=== PATIENT | male | born 1940 | race Caucasian/White ===

== ENCOUNTER → 2017-03-14 | Outpatient (CLI) | payer MEDICARE, BC ==
[2014-09-30 19:58] VITALS: BP 145/78
[~2017-03-14] MED LIST: ALBU8.5H8 INH; AZIT250T PO; BUPIVACAINE MPF 0.25% 10 ML VIAL. ONE; CEPH500C PO; CITA40TA5 PO; DEXAMETHASONE SOD PHOS 4 MG/ML VIAL ONE; EZET1TAB35 PO; FLUT1DIS3 IH; FLUT1DIS5 IH; GENT5DRO3 OP; HYDR-2758 PO; LIDOCAINE 1% PF 30 ML VIAL. ONE; METO-239 PO; OXYC-323 PO; TIOT18CA IH
== END | disposition home or self-care (01) ==
LOC: SURG 12:51
PROVIDERS: ATTEND Anesthesiology Pain Medicine
DX: M17.11 Unilateral primary osteoarthritis, right knee (principal); J44.9 Chronic obstructive pulmonary disease, unspecified; I48.91 Unspecified atrial fibrillation; I25.10 Atherosclerotic heart disease of native coronary artery without angina pectoris; M19.91 Primary osteoarthritis, unspecified site; Z72.0 Tobacco use
CPT/HCPCS: 20610; 77002; J1100; J2001; J3490

== ENCOUNTER 2017-03-21 11:52 | Emergency (ER) | payer MEDICARE ==
[~2017-03-21 11:52] MED LIST changes: -AZIT250T PO; -BUPIVACAINE MPF 0.25% 10 ML VIAL. ONE; -DEXAMETHASONE SOD PHOS 4 MG/ML VIAL ONE; -LIDOCAINE 1% PF 30 ML VIAL. ONE
[2017-03-21 11:55] VITALS: BP 102/67
--- NOTE | 2017-03-21 12:43 | RAD ---
Portable chest, 03/21/2017: History: Shortness of breath, COPD There has been a previous median sternotomy. A left-sided transvenous venous pacing device is in place with a single lead extending of the right ventricle. The heart size is normal. There is calcific plaquing and tortuosity of the thoracic aorta. The pulmonary vascularity is normal. No pulmonary infiltrates are seen. There is minimal basilar scarring. No pleural fluid is evident. A right shoulder prosthesis is in place. IMPRESSION: No acute cardiopulmonary abnormality is detected.
--- NOTE | 2017-03-21 12:48 | PHYS DOC ---
General Chief Complaint: cough Stated Complaint: FEVER,COUGH Time Seen by MD: 12:01 Source: patient, family Exam Limitations: no limitations Problems: History of Present Illness Initial Comments Patient is a 76-year-old male brought to the ED by family with possible bronchitis. Patient was getting injections for pain control at the pain clinic for his right knee today and decided to come for evaluation. Patient states he's been complaining of worsening nonproductive cough and chills for several days. Family persuaded him to check in for evaluation. Patient has chronic respiratory failure uses 4 L of oxygen via nasal cannula at all times. He denies any new shortness of breath chest pain, palpitations, edema, diaphoresis , nausea, vomiting, or measured fevers. Describes his symptoms as minimal, states he gets a cold around this time each year "right before Thanksgi." ED vital signs are stable on his home O2 Timing/Duration: other (past few days) Severity: mild Modifying Factors: improves with other Associated Symptoms: cough Allergies: Coded Allergies: Sulfa (Sulfonamide Antibiotics) (Unverified Allergy, Severe, 09/30/14) Past Medical History Medical History: other (COPD, coronary artery disease, AAA "inoperable", sudden cardiac in 1998, prostate cancer, chronic right knee pain, chronic respiratory failure uses 4 L of O2 nasal cannula at all times) Surgical History: other (CABG times , right shoulder) Social History Smoker: quit greater than 1 year (1998) Alcohol: none Drugs: none Review of Systems Constitutional: chills, denies diaphoresis, denies fever, denies malaise Respiratory: cough, denies shortness of breath, denies wheezing Cardiovascular: denies chest pain, denies edema, denies palpitations, denies syncope Gastrointestinal: denies abdominal pain, denies diarrhea, denies nausea, denies vomiting Genitourinary: denies dysuria, denies frequency, denies hematuria Musculoskeletal: see HPI, denies back pain, denies neck pain Psychiatric/Neurological: denies headache, denies numbness, denies paresthesia , denies weakness Hematologic/Lymphatic: denies blood clots, denies easy bleeding, denies easy bruising Physical Exam General Appearance: no apparent distress, thin Eyes: bilateral eye normal inspection, bilateral eye PERRL, bilateral eye EOMI Ear, Nose, Throat: hearing grossly normal, normal ENT inspection (wearing nasal cannula), normal pharynx Neck: non-tender, supple Respiratory: chest non-tender (scar consistent with remote CABG), no respiratory distress, decreased breath sounds, wheezing Cardiovascular: normal peripheral pulses, regular rate, rhythm, no edema Gastrointestinal: non tender, soft Back: no CVA tenderness, no vertebral tenderness Extremities: normal range of motion, normal inspection (right knee with sterile dressings status post intra-articular injections, mild clubbing of the nails), no calf tenderness Neurologic/Psychiatric: lace winder II-XII nml as tested, no motor/sensory deficits, alert, normal mood/affect, oriented x 3 Skin: normal color, warm/dry Orders, Labs, Meds EKG: Normal sinus rhythm 76 bpm, multiple PVCs no STEMI changes. Baseline wander artifact noted interpreted by Dr. Moore. PATIENT: CARLOS VILLAFUERTE ACCOUNT: [id number] : 1940 LOCATION: ER AGE: 76 SEX: M EXAM STATUS: REG ER ORD. PHYSICIAN: ALFRED MOORE DO REASON: sob, h/o COPD PROCEDURE: CHEST AP ONLY Portable chest, 03/21/2017: History: Shortness of breath, COPD There has been a previous median sternotomy. A left-sided transvenous venous pacing device is in place with a single lead extending of the right ventricle. The heart size is normal. There is calcific plaquing and tortuosity of the thoracic aorta. The pulmonary vascularity is normal. No pulmonary infiltrates are seen. There is minimal basilar scarring. No pleural fluid is evident. A right shoulder prosthesis is in place. IMPRESSION: No acute cardiopulmonary abnormality is detected. DICTATED AND SIGNED BY: JOMAR CRAMER MD DATE: 03/21/17 1240 CC: ALFRED MOORE DO; MIGDALIA HAMILTON ~ No new or progressive symptoms. I discussed empiric antimicrobial therapy to prevent pneumonia. I discussed signs and symptoms to monitor as well as indications for urgent return to the department. The patient's questions were answered to his satisfaction and he expressed agreement and understanding with the treatment plan. Departure Time of Disposition: 12:57 Disposition: 01 HOME, SELF-CARE Diagnosis: bronchitis, COPD with chronic respiratory failure Condition: STABLE Patient Instructions: Acute Bronchitis, [id number] Additional Instructions: Continue current medications. Activity as tolerated. Prescription: Zithromax take with food as directed. Follow-up with your doctor in 5-7 days for recheck. Return to ED with new or changing symptoms. ALFRED MOORE DO Mar 21, 2017 12:48
[2017-03-21] MEDS ORDERED: AZIT250T PO (12:55)
--- NOTE | 2017-03-21 14:01 | EKG ---
[address] [address] Test Date: 2017-03-21 Test Time: 12:18:01 Pat Name: CARLOS VILLAFUERTE Department: Room: Gender: M Partner Marketing Manager: SYLVIA : 1940 Requested By: ALFRED MOORE Order Number: [id number] Reading MD: Biju Ha MD Measurements Intervals Streeter Rate: 76 P: RI: QRS: 134 QRSD: 102 T: 102 QT: 412 QTc: 468 Interpretive Statements SR PVC'S POSSIBLE LIMB LEAD MISPLACEMENT NON-SPECIFIC ST/T CHANGES Electronically Signed On 03-24-2017 14:14:25 COMPLIANCE VICE PRESIDENT by Biju Ha MD
== END 2017-03-21 13:09 | disposition home or self-care (01) ==
LOC: ER 11:52
DX: J44.9 Chronic obstructive pulmonary disease, unspecified (principal); J96.10 Chronic respiratory failure, unspecified whether with hypoxia or hypercapnia; I25.810 Atherosclerosis of coronary artery bypass graft(s) without angina pectoris; G89.29 Other chronic pain; Z87.891 Personal history of nicotine dependence; Z99.81 Dependence on supplemental oxygen; Z88.2 Allergy status to sulfonamides
CPT/HCPCS: 71010; 93005; 99284-25

== ENCOUNTER → 2017-03-21 | Outpatient (CLI) | payer MEDICARE ==
[2014-09-30 19:58] VITALS: BP 145/78
== END | disposition home or self-care (01) ==
LOC: SURG 10:35
PROVIDERS: ATTEND Anesthesiology Pain Medicine
DX: M17.11 Unilateral primary osteoarthritis, right knee (principal); Z95.1 Presence of aortocoronary bypass graft; Z88.1 Allergy status to other antibiotic agents; Z88.2 Allergy status to sulfonamides
CPT/HCPCS: 20610; J1100; J2001; J3490

== ENCOUNTER → 2017-03-25 | Outpatient (CLI) | payer MEDICARE ==
[2017-03-21 11:55] VITALS: BP 102/67
[~2017-03-25] MED LIST changes: +AZIT250T PO
== END | disposition home or self-care (01) ==
LOC: SURG 14:58
PROVIDERS: ATTEND Anesthesiology
DX: M17.11 Unilateral primary osteoarthritis, right knee (principal); Z87.891 Personal history of nicotine dependence
CPT/HCPCS: 99214